=== PATIENT | male | born 1965 | race African-American/Black ===

== ENCOUNTER 2025-06-19 14:32 | Emergency (ER) | payer MEDICAID ==
[~2025-06-19] VITALS: Ht 170.2 cm; Wt 79.3 kg
[2025-06-19 14:48] VITALS: TEMP 36.7; O2SAT 100
[2025-06-19] MEDS: KETOROLAC 30MG/ML VIAL IM ONE (17:43)
[2025-06-19] MEDS: ACETAMINOPHEN 325MG TABLET PO ONE (17:43)
[2025-06-19] MEDS: LISINOPRIL 20MG TABLET PO ONE (17:45)
[2025-06-19 18:24] LABS: BASOPHILS % 0.5 % (0.0-2.0); EOSINOPHILS % 3.4 % (0.0-5.0); HEMATOCRIT. 43.3 % (42.0-52.0); HEMOGLOBIN. 14.7 g/dL (14.0-18.0); LYMPHOCYTES % 30.0 % (20.0-50.0); MEAN PLATELET VOLUME 8.6 fl (7.4-10.4); MONOCYTES % 13.2 % (2.0-8.0); NEUTROPHILS % 52.9 % (40.0-76.0); PLATELET 205 x1000/uL (130-400); RED BLOOD CELL COUNT 4.35 mill/uL (4.7-6.1); RED CELL DISTRIBUTION WIDTH 12.8 % (11.6-14.6)
[2025-06-19 18:32] LABS: TROPONIN I HIGH SENSITIVITY 15 ng/L (3.0-53)
[2025-06-19 18:33] LABS: CREATININE 1.1 mg/dL (0.6-1.3); UREA NITROGEN BLOOD 8 mg/dL (9-23)
[2025-06-19 18:34] LABS: ASPARTATE AMINOTRANSFERASE 45 IU/L (<34)
[2025-06-19 18:35] LABS: BILIRUBIN DIRECT 0.5 mg/dL (<=3.0); BILIRUBIN TOTAL 1.7 mg/dL (0.1-1.0); PROTEIN TOTAL 7.4 g/dL (6.0-8.3)
[2025-06-19 18:40] LABS: INR 1.0
[2025-06-19] MEDS ORDERED: LISI20TA31 MT (19:03)
[2025-06-19] MEDS ORDERED: KETO10TA2 MT (19:03)
[2025-06-19 19:25] VITALS: BP 161/108; PULSE 82; RESP 18; O2SAT 100
== END 2025-06-19 19:25 | disposition home or self-care (01) ==
LOC: ER 14:32
DX: I10 Essential (primary) hypertension (principal); G62.9 Polyneuropathy, unspecified; Z98.890 Other specified postprocedural states
CPT/HCPCS: 80076; 80048; 83690; 85025; 85610; 84484; 36415; 71045; 96372; 99284; J1885; Z7610